=== PATIENT | male | born 1960 | race American Indian/Alaskan Native ===

== ENCOUNTER 2021-06-05 12:45 | Emergency (ER) | payer MEDICARE ==
[2021-06-05 15:22] VITALS: BP 170/95
--- NOTE | 2021-06-05 15:58 | Emergency Department Report ---
<BRITTANEY CHAMBERSSYLVIA L - Last Filed: 06/05/21 17:14> ED Lower Extremity HPI - General Chief Complaint: Extremity Injury, Lower Stated Complaint: GOUT LEFT FOOT Source: patient Mode of arrival: Ambulatory Limitations: No Limitations - History of Present Illness Initial Comments: 60-year-old male presents to the ED complaining left foot pain after eating whit e rice. Patient states that he has a history of hypertension and gout. States that he is visiting from [place] and left his colchicine at home. Patient states that normally that intake to colchicine and will relieve the gout attack. Patient denies any fever chills nausea vomiting. Patient is able to bear weight. No obvious deformity noted. No distracting injury noted. Mild edema noted. Patient able to bear weight. Patient is alert and oriented x3. No acute distress noted no ill appearance noted. Patient states pain is a 5 out of 10. -: This morning Injury: Foot: Left Severity scale (0 -10): 5 Improves With: nothing - Related Data Previous Rx's Medication Instructions Recorded Last Taken Type Albuterol Mdi (or & Nicu Only) 2 puff IH QID PRN #8.5 gram 06/05/21 Unknown Rx [ProAir HFA Inhaler] Colchicine [Colcrys] 0.6 mg PO BID 15 Days #30 tab 06/05/21 Unknown Rx Naproxen [Naprosyn] 500 mg PO BID 15 Days #30 tablet 06/05/21 Unknown Rx Allergies Allergy/AdvReac Type Severity Reaction Status Date / Time No Known Allergies Allergy Verified 06/05/21 15:22 ED Review of Systems Constitutional: denies: chills, fever Eyes: denies: eye pain, eye discharge, vision change ENT: denies: ear pain, throat pain Respiratory: denies: cough, shortness of breath, wheezing Cardiovascular: denies: chest pain, palpitations Endocrine: no symptoms reported Gastrointestinal: denies: abdominal pain, nausea, diarrhea Genitourinary: denies: urgency, dysuria Musculoskeletal: joint swelling. denies: back pain, arthralgia Skin: denies: rash, lesions Neurological: denies: headache, weakness, paresthesias Psychiatric: denies: anxiety, depression Hematological/Lymphatic: denies: easy bleeding, easy bruising ED Past Medical Hx - Past Medical History Previous Medical History?: Yes Hx Hypertension: Yes Additional medical history: gout, afib - Medications Home Medications: Home Medications Medication Instructions Recorded Confirmed Last Taken Type Albuterol Mdi (or & Nicu Only) 2 puff IH QID PRN #8.5 gram 06/05/21 Unknown Rx [ProAir HFA Inhaler] Colchicine [Colcrys] 0.6 mg PO BID 15 Days #30 tab 06/05/21 Unknown Rx Naproxen [Naprosyn] 500 mg PO BID 15 Days #30 tablet 06/05/21 Unknown Rx ED Physical Exam - General Limitations: No Limitations General appearance: alert, in no apparent distress - Head Head exam: Present: atraumatic, normocephalic - Eye Eye exam: Present: normal appearance - ENT ENT exam: Present: mucous membranes moist - Neck Neck exam: Present: normal inspection - Respiratory Respiratory exam: Present: normal lung sounds bilaterally. Absent: respiratory distress - Cardiovascular Cardiovascular Exam: Present: regular rate, normal rhythm. Absent: systolic murmur, diastolic murmur, rubs, gallop - GI/Abdominal GI/Abdominal exam: Present: soft, normal bowel sounds - Rectal Rectal exam: Present: deferred - Extremities Exam Extremities exam: Present: normal inspection - Back Exam Back exam: Present: normal inspection - Neurological Exam Neurological exam: Present: alert, oriented X3 - Psychiatric Psychiatric exam: Present: normal affect, normal mood - Skin Skin exam: Present: warm, dry, intact, normal color. Absent: rash ED Lower Extremity MDM - Medical Decision Making 60-year-old male presents to the ED complaining left foot pain after eating white rice. Patient states that he has a history of hypertension and gout. States that he is visiting from [place] and left his colchicine at home. Patient states that normally that intake to colchicine and will relieve the gout attack. Patient denies any fever chills nausea vomiting. Patient is able to bear weight. No obvious deformity noted. No distracting injury noted. Mild edema noted. Patient able to bear weight. Patient is alert and oriented x3. No acute distress noted no ill appearance noted. Patient states pain is a 5 out of 10. Physical examination show mild edema noted to the left foot. 30 mg given with Decadron 10 mg. Refill patient medication for colchicine, ibuprofen and albuterol inhaler. Rechecked the patient is resting quietly quietly and comfortable and feeling better. I discussed the results of diagnostic study, my clinical impression and the plan for further treatment with the patient. Patient agrees with plan and discharge at this present time. All question addressed. I have given the patient instruction regarding a diagnosis ,expectation ,follow- up and return precaution. I explained to the patient that emergent condition may arise and to return to the ED for new worsen and any new persisting condition. I have explained the importance of following up with the primary care physician or referral physician listed below has instructed. The patient verbalized understanding of discharge instruction. ED Disposition Clinical Impression: Gout attack Qualifiers: Gout site: foot Gout etiology: unspecified cause Laterality: left Qualified Code(s): M10.9 - Gout, unspecified Disposition: HOME / SELF CARE / HOMELESS Is pt being admited?: No Does the pt Need Aspirin: No Condition: Stable Instructions: Low-Purine Eating Plan Additional Instructions: Take medication as prescribed Up with primary care doctor upon arriving back home to [place] Return to the ED for any worsening symptoms Prescriptions: Colchicine [Colcrys] 0.6 mg PO BID 15 Days #30 tab Naproxen [Naprosyn] 500 mg PO BID 15 Days #30 tablet Albuterol Mdi (or & Nicu Only) [ProAir HFA Inhaler] 2 puff IH QID PRN #8.5 gram PRN Reason: Shortness Of Breath Referrals: [facility] [Provider Group] - 3-5 Days <BROCK AYOUB U - Last Filed: 06/05/21 19:46> ED Review of Systems ROS: Stated complaint: GOUT LEFT FOOT Other details as noted in HPI ED Course Vital Signs 06/05/21 15:20 Temperature 98.6 F Pulse Rate 83 Respiratory 14 Rate Blood Pressure 170/95 [Left] O2 Sat by Pulse 96 Oximetry ED Lower Extremity MDM - Medical Decision Making MLP attestation: I was available for consultation at all times during this patient's visit in the ER but was not consulted on this case. Critical care attestation.: If time is entered above; I have spent that time in minutes in the direct care of this critically ill patient, excluding procedure time.
[2021-06-05] MEDS: KETOROLAC 30 MG/1 ML INJ IM ONE (16:42)
[2021-06-05] MEDS: dexAMETHasone 20 MG/5 ML VIAL IM ONE (16:42)
== END 2021-06-05 17:00 | disposition home or self-care (01) ==
LOC: ED 12:45
DX: M10.9 Gout, unspecified (principal); I10 Essential (primary) hypertension
CPT/HCPCS: 96372; 99282; J1100; J1885

== ENCOUNTER 2021-06-28 01:33 | Emergency (ER) | payer MEDICARE ==
[2021-06-28 01:45] VITALS: BP 156/105
[2021-06-28] MEDS ORDERED: KETOROLAC 60 MG/2 ML INJ IM STA (02:24)
[2021-06-28] MEDS ORDERED: oxyCODONE /ACETAMINOPHEN 5-325MG TAB PO ONE (02:24)
--- NOTE | 2021-06-28 03:01 | Emergency Department Report ---
ED General Adult HPI - General Chief complaint: Pain General Stated complaint: GOUT Time Seen by Provider: 06/28/21 02:12 Source: patient Mode of arrival: Ambulatory Limitations: No Limitations - History of Present Illness Initial comments: 60-year-old -[place] male past medical history of gout and chronic pain management presents emerged department complaining of having a gout flareup involving his left knee and seeks his usual cocktail to mitigate his gouty attack. Reports no traumatic event. No fever, chills, sweats. No nausea vomiting, no chest pain or palpitation. -: Gradual Radiation: non-radiation Severity scale (0 -10): 8 Quality: dull Consistency: constant Improves with: none Worsens with: none - Related Data Previous Rx's Medication Instructions Recorded Last Taken Type Albuterol Mdi (or & Nicu Only) 2 puff IH QID PRN #8.5 gram 06/05/21 Unknown Rx [ProAir HFA Inhaler] Naproxen [Naprosyn] 500 mg PO BID 15 Days #30 tablet 06/05/21 Unknown Rx Colchicine [Colcrys] 0.6 mg PO BID 15 Days #30 tab 06/28/21 Unknown Rx Indomethacin [Indocin] 25 mg PO Q8H #20 cap 06/28/21 Unknown Rx Allergies Allergy/AdvReac Type Severity Reaction Status Date / Time No Known Allergies Allergy Verified 06/28/21 01:47 ED Review of Systems ROS: Stated complaint: GOUT Other details as noted in HPI Comment: All other systems reviewed and negative ED Past Medical Hx - Past Medical History Previous Medical History?: Yes Hx Hypertension: Yes Additional medical history: gout, afib - Surgical History Past Surgical History?: Yes Additional Surgical History: cervical fusion, - Social History Smoking Status: Current Every Day Smoker Substance Use Type: None - Medications Home Medications: Home Medications Medication Instructions Recorded Confirmed Last Taken Type Albuterol Mdi (or & Nicu Only) 2 puff IH QID PRN #8.5 gram 06/05/21 Unknown Rx [ProAir HFA Inhaler] Naproxen [Naprosyn] 500 mg PO BID 15 Days #30 tablet 06/05/21 Unknown Rx Colchicine [Colcrys] 0.6 mg PO BID 15 Days #30 tab 06/28/21 Unknown Rx Indomethacin [Indocin] 25 mg PO Q8H #20 cap 06/28/21 Unknown Rx ED Physical Exam - General Limitations: No Limitations General appearance: alert, in no apparent distress - Head Head exam: Present: atraumatic, normocephalic - Eye Eye exam: Present: normal appearance - ENT ENT exam: Present: mucous membranes moist - Neck Neck exam: Present: normal inspection - Respiratory Respiratory exam: Present: normal lung sounds bilaterally. Absent: respiratory distress - Cardiovascular Cardiovascular Exam: Present: regular rate, normal rhythm. Absent: systolic m urmur, diastolic murmur, rubs, gallop - GI/Abdominal GI/Abdominal exam: Present: soft, normal bowel sounds - Rectal Rectal exam: Present: deferred - Extremities Exam Extremities exam: Present: normal inspection, tenderness, normal capillary refill, joint swelling. Absent: pedal edema, calf tenderness - Expanded Lower Extremity Exam Left Knee exam: Present: tenderness, swelling. Absent: laceration, ecchymosis, deformity, effusion, posterior draw sign, pain/laxity with varus Lower Leg exam: Present: normal inspection, full ROM - Back Exam Back exam: Present: normal inspection - Neurological Exam Neurological exam: Present: alert, oriented X3 - Psychiatric Psychiatric exam: Present: normal affect, normal mood - Skin Skin exam: Present: warm, dry, intact, normal color. Absent: rash ED Course Vital Signs 06/28/21 01:44 Temperature 98.2 F Pulse Rate 103 H Respiratory 20 Rate Blood Pressure 156/105 O2 Sat by Pulse 96 Oximetry ED Medical Decision Making - Medical Decision Making 60-year-old male history presents emerged department with chronic gout flareup. Treated: Emergency department with Toradol as recommended and Percocet tablet. No prescriptions provided he reports he is on chronic pain management. His usual cocktail of colchicine and Indocin was was provided and he will he was discharged home with normal patient education. No complications throughout his emergency room visit. Pain did improve with the current treatment and he was ambulatory. Critical care attestation.: If time is entered above; I have spent that time in minutes in the direct care of this critically ill patient, excluding procedure time. ED Disposition Clinical Impression: Gout, arthritis, Knee pain Disposition: HOME / SELF CARE / HOMELESS Is pt being admited?: No Does the pt Need Aspirin: No Condition: Stable Instructions: Low-Purine Eating Plan, Pain Without a Known Cause, Acute Knee Pain, Adult, [id number], How to Use a Knee Brace Prescriptions: Colchicine [Colcrys] 0.6 mg PO BID 15 Days #30 tab Indomethacin [Indocin] 25 mg PO Q8H #20 cap Referrals: [facility] [Provider Group] - 3-5 Days
== END 2021-06-28 03:28 | disposition home or self-care (01) ==
LOC: ED 01:33
DX: M10.9 Gout, unspecified (principal); M19.90 Unspecified osteoarthritis, unspecified site; M25.569 Pain in unspecified knee
CPT/HCPCS: 96372; 99282; J1885

== ENCOUNTER 2021-10-24 13:29 | Emergency (ER) | payer MEDICARE ==
[2021-10-24 13:46] VITALS: BP 155/100
--- NOTE | 2021-10-25 09:55 | Electrocardiograph Report ---
[facility] Test Date: 2021-10-24 Test Time: 13:31:13 Pat Name: TOR HOWARD Department: Room: Gender: M Edger Automatic: [id number] : 1960 Requested By: ED DOC Order Number: [id number] Reading MD: Wagner Grossman Measurements Intervals [place] Rate: 81 P: [place]: QRS: -39 QRSD: 85 T: 34 QT: 389 QTc: 452 Interpretive Statements Atrial fibrillation Left ventricular hypertrophy nonspecific st-t No previous ECG available for comparison Electronically Signed On 10-25-2021 9:54:39 EDT by Wagner Grossman
== END 2021-10-24 22:50 | disposition left against medical advice (07) ==
LOC: ED 13:29
DX: R07.9 Chest pain, unspecified (principal); Z53.21 Procedure and treatment not carried out due to patient leaving prior to being seen by health care provider
CPT/HCPCS: 93005